=== PATIENT | female | born 1940 | race Caucasian/White ===

== ENCOUNTER 2025-01-05 08:54 | Day surgery (SDC) | payer OTHER ==
[2024-12-30 13:06] VITALS: BMI 25.8
[2025-01-05] MEDS ORDERED: VANCOMYCIN 1,000 MG VIAL (RESTRICTED TO ID ONLY) ONE (11:16)
[2025-01-05] MEDS ORDERED: TRANEXAMIC ACID 1000 MG/10 ML VIAL ONE ×2 (11:16→13:37)
[2025-01-05] MEDS ORDERED: PROPOFOL 20 ML ONE (11:52)
[2025-01-05] MEDS ORDERED: SUCCINYLCHOLINE CHLORIDE 200 MG/10 ML SYRINGE ONE (11:52)
[2025-01-05] MEDS ORDERED: ACETAMINOPHEN INJECTION 100 ML ONE (13:35)
[2025-01-05] MEDS ORDERED: MAG HYDROX/AL HYDROX/SIMETH 30 ML UNIT-DOSE CUP PO PRN (14:03)
[2025-01-05] MEDS ORDERED: ONDANSETRON 4 MG/2 ML VIAL IVPUSH PRN (14:03)
[2025-01-05] MEDS ORDERED: SIMETHICONE 125 MG PO SCH (14:15)
[2025-01-05] MEDS ORDERED: LACTATED RINGERS SOLUTION 1,000 ML IV SCH (14:30)
[2025-01-05] MEDS: LACTATED RINGERS SOLUTION 1,000 ML IV SCH (16:35)
[2025-01-05] MEDS: SENNOSIDES/DOCUSATE COMBO (SENNA PLUS) TABLET (UD) PO SCH (21:03)
[2025-01-05] MEDS: GABAPENTIN 300 MG CAPSULE PO SCH (21:03)
[2025-01-05] MEDS: ACETAMINOPHEN 1000 MG/100 ML BAG IVPB SCH (21:03)
[2025-01-05] MEDS: CEFAZOLIN 2 GM/D5W 2 GRAM/50 ML ML IVPB SCH (21:03)
[2025-01-05] MEDS ORDERED: [UNRECOGNIZED DRUG - OTHER] PO SCH (22:00)
[2025-01-05] MEDS: VANCOMYCIN/WATER FOR INJ (PEG) 1 GM/200 ML BAG IVPB ONE (23:44)
[2025-01-06] MEDS: traMADol HCL 50 MG TABLET PO PRN (01:25)
[2025-01-06 02:11] VITALS: RESP 18
[2025-01-06 08:14] LABS: HEMATOCRIT 33.1 % (34.1-44.9); HEMOGLOBIN 10.5 g/dL (11.2-15.7); MCHC 31.7 g/dl (32.2-35.5); MEAN CELL VOLUME 85.3 fl (79.4-94.8); MEAN PLT VOLUME 10.3 fl (9.4-12.3); PLATELET COUNT 172 x10^3/uL (182-369); RDW 14.1 % (12.5-17.0)
[2025-01-06 09:10] LABS: CALCIUM 8.5 mg/dl (8.5-10.1); CREATININE 0.6 mg/dl (0.6-1.3); POTASSIUM 4.1 mmol/L (3.5-5.1)
[2025-01-06] MEDS: MULTIVITAMINS (DAILY MVI) TABLET (FP) PO SCH (10:01)
[2025-01-06] MEDS: ASPIRIN COATED 81 MG TABLET.EC PO SCH (10:02)
[2025-01-06] MEDS: THYROID 15 MG TABLET PO SCH (10:04)
[2025-01-06] MEDS: PANTOPRAZOLE 40 MG TABLET PO SCH (11:38)
[2025-01-06] MEDS ORDERED: THYROID 15 MG TABLET PO SCH (12:00)
[2025-01-06 15:55] VITALS: BP 131/61; PULSE 78; TEMP 98.1
== END 2025-01-06 15:38 | disposition home or self-care (01) ==
LOC: FASUSAT 08:54 → SUATTDRO 08:54 → FM/S 15:54 → FASUSAT 01-06 15:38
PROVIDERS: ATTEND Internal Medicine
PROC: 0LS30ZZ Reposition Right Upper Arm Tendon, Open Approach (ICD-10-PCS; 2025-01-05)
PROC: 0RHJ04Z Insertion of Internal Fixation Device into Right Shoulder Joint, Open Approach (ICD-10-PCS; 2025-01-05)
PROC: 0RRJ0JZ Replacement of Right Shoulder Joint with Synthetic Substitute, Open Approach (ICD-10-PCS; principal; 2025-01-05 12:40)
DX: M75.121 Complete rotator cuff tear or rupture of right shoulder, not specified as traumatic (principal); M75.21 Bicipital tendinitis, right shoulder; M19.011 Primary osteoarthritis, right shoulder
CPT/HCPCS: 23430; 23472; C1713; 36415; 73030-TC-RT-FY; 80048; 85027; 88304-TC; 88305-TC; 88311-TC; 94760; 97010-GP; 97116-GP; 97162-GP; C1776; J0131